=== PATIENT | male | born 1935 | race Caucasian/White ===

== ENCOUNTER 2018-04-07 08:51 | Outpatient (CLI) | payer MEDICARE, BC ==
--- NOTE | 2018-04-07 11:40 | CT ---
CT ABDOMEN AND PELVIS WITHOUT IV CONTRAST: DATE: 04/07/2018. PROVIDED CLINICAL HISTORY: Diverticulitis. FINDINGS: The biochemistry technologist reports administered 100 cc of IV Isovue 370 prior to the procedure. Contrast ma terial is not present intravascularly at the time of image acquisition. The technologist reports no evidence for infiltration of the IV. The visualized lung bases are free of significant opacity. The solid abdominal organs are suboptimally evaluated in the absence of IV contrast but demonstrate a n unremarkable unenhanced CT appearance. There is sigmoid diverticulosis with minimal equivocal fat stranding changes about a portion of the d istal sigmoid colon that may reflect mild uncomplicated diverticulitis. There is no evidence for bowel dilatation, additional inflammatory fat stranding, free fluid, or free air. The prostate gland is prominently enlarged. The osseous structures demonstrate no concerning lytic or blastic lesions. IMPRESSION: 1. Sigmoid diverticulosis with possible mild uncomplicated diverticulitis involving the distal sigmo id colon. 2. Other chronic findings as above. POS: HENRIETTA
== END 2018-04-07 08:52 | disposition home or self-care (01) ==
LOC: SCSCT 08:51
PROVIDERS: ATTEND Internal Medicine Gastroenterology
DX: K57.92 Diverticulitis of intestine, part unspecified, without perforation or abscess without bleeding (principal); K57.30 Diverticulosis of large intestine without perforation or abscess without bleeding
CPT/HCPCS: 74177; 82565

== ENCOUNTER 2020-04-15 08:29 | Observation (INO) | payer MEDICARE, BC ==
[2020-04-15 09:00] LABS: #Eosinphils 0.1 thou/uL (0.0-0.7); #Lymphocytes 0.6 thou/uL (1.20-3.40); #Monocytes 0.4 thou/uL (0.11-0.59); #Neutrophils 4.7 thou/uL (1.40-6.50); %Basophils 0.5 % (0.0-1.0); %Eosinophils 1.1 % (0.0-10.0); %Lymphocytes 10.5 % (21.0-51.0); %Monocytes 6.1 % (0.0-10.0); %Neutrophils 81.8 % (42.0-75.0); Hemoglobin 11.9 g/dL (14.0-18.0); Mean Corpuscular HGB CONC 34.1 g/dL (32.0-36.0); Mean Corpuscular Hemoglobin 34.6 pg (27.0-31.0); Mean Platelet Volume 7.9 fL (7.4-10.4); Platelet Count 137 thou/uL (130-400); RBC Distribution Width 11.5 % (11.5-14.5); Red Blood Cell (RBC) Count 3.44 mill/uL (4.70-6.10); White Blood Cell (WBC) Count 5.7 thou/uL (4.8-10.8)
--- NOTE | 2020-04-15 09:11 | RAD ---
CHEST 1 VIEW: Date: 04/15/2020 HISTORY: Nauseous, dizziness, weakness. COMPARISON: 04/01/2016. FINDINGS: Mild increased linear markings in the bases. No confluent pneumonia, overt edema, or pleural effusion . IMPRESSION: No significant acute intrathoracic disease. POS: RRE
--- NOTE | 2020-04-15 09:12 | CT ---
BRAIN CT WITHOUT IV CONTRAST: Date: 04/15/2020 HISTORY: Dizziness. Weakness. Nausea. FINDINGS: There is some atrophy and chronic white matter ischemic change. No focal mass or midline shift. No in tra or extra-axial hemorrhage. Mild ethmoid sinus mucosal congestion. The mastoids appear clear. IMPRESSION: No significant acute intrathoracic disease. POS: RRE
[2020-04-15 09:38] LABS: ALT (SGPT) 19 U/L (8-55); AST (SGOT) 31 U/L (5-34); Albumin 3.9 g/dL (3.4-4.8); Alkaline Phosphatase 46 U/L (40-110); Anion Gap 18 mmol/L (10-20); BUN (Urea Nitrogen) 26 mg/dL (8.4-25.7); Bilirubin, Total 1.3 mg/dL (0.2-1.2); Calc. Creatinine Clearance 0 mL/min (70-130); Calcium 8.7 mg/dL (7.8-10.44); Carbon Dioxide 19 mmol/L (23-31); Chloride 105 mmol/L (98-107); Globulin 3.2 g/dL (2.4-3.5); Glucose 120 mg/dL (83-110); Potassium 4.4 mmol/L (3.5-5.1); Protein, Total 7.1 g/dL (5.8-8.1); Sodium 138 mmol/L (136-145)
[2020-04-15 10:43] LABS: Bilirubin Negative (Negative); Blood, Urine Negative (Negative); Clarity Clear (Clear); Glucose, Urine (Dipstick) Normal (Negative); Ketone, Urine Negative (Negative); Leukocyte Negative Leu/uL (Negative); Nitrite Negative (Negative); Protein, Urine (Dipstick) 20 mg/dL (Neg-Trace); Specific Gravity, Urine 1.019 (1.002-1.036); Urobilinogen Normal mg/dL (Less than 2)
[2020-04-15] MEDS ORDERED: Meclizine HCl 25 MG TAB ONE (11:35)
--- NOTE | 2020-04-15 11:57 | PDOC.HHP ---
Hospitalist HPI - History of Present Illness Dizziness History of Present Illness: Mr. Cherry is an 84-year-old male with past medical history of hypertension, hyperlipidemia, BPH, diverticulitis who presents emergency room for acute onset of dizziness. Patient reports that he awoke this morning and approximately 10 minutes after waking up he became extremely dizzy and felt as though the room was spinning around him. Patient states his dizziness was so severe he had to crawl on the floor on his hands and knees. Patient also felt extremely nauseous. He denies any history of vertigo or any similar events. Episode lasted approximately 2 hours and resolves, however while in emergency room patient had a second acute episode of dizziness and on my exam continues to report that the room is spinning. He denies any numbness weakness or paresthesias. Denies any visual changes. Denies any recent ear infections or upper respiratory infections. No recent dental work. Denies chest pain, shortness of breath, abdominal pain. Emergency room initial vital signs 126/69, 67, 16, 97.9, 95% on room air. Head CT with no acute findings. Chest x-ray with no acute findings. Initial troponin 0 0.010. H/H 11.9/34.9. WBC 5.7. BUN/CR 26/1.08. Sodium 138, potassium 4.4, glucose 120. Patient received meclizine 25 mg as well as Zofran in the emergency room. Hospitalist ROS - Review of Systems Constitutional: denies: fever, chills, sweats, weakness, malaise, other Eyes: denies: pain, vision change, conjunctivae inflammation, eyelid inflammation, redness, other ENT: denies: ear pain, ear discharge, nose pain, nose discharge, nose congestion, mouth pain, mouth swelling, throat pain, throat swelling, other Respiratory: denies: cough, dry, shortness of breath, hemoptysis, SOB with excertion, pleuritic pain, sputum, wheezing, other Cardiovascular: denies: chest pain, palpitations, orthopnea, paroxysmal noc. dyspnea, edema, light headedness, other Gastrointestinal: reports: nausea. denies: vomiting, abdominal pain, diarrhea, constipation, melena, hematochezia, other Genitourinary: denies: dysuria, frequency, incontinence, hematuria, retention, other Musculoskeletal: denies: neck pain, shoulder pain, arm pain, back pain, hand pain, leg pain, foot pain, other Skin: denies: rash, lesions, carmine, bruising, other Other: Dizziness as though the room is spinning - Medication Medications: New medications include Lipitor Flomax Aspirin Diovan Allergies to adhesive tape, phenylephrine, dicyclomine, pseudoephedrine, brompheniramine Hospitalist History - Past Medical History Other Medical History: Past medical history includes Hypertension Hyperlipidemia BPH Diverticulitis - Past Surgical History Other Surgical History: Past surgical history includes Hernia repair Back surgery - Family History Other Family History: Endorses family history of strokes in both his parents - Social History Smoking Status: Never smoker Alcohol: reports: None Drugs: reports: none Living Situation: With Family Activity level: independent ambulation - Exam General Appearance: NAD, awake alert Eye: PERRL, anicteric sclera Eye - other findings: Horizontal nystagmus ENT: normocephalic atraumatic, no oropharyngeal lesions, moist mucosa Neck: supple, symmetric, no JVD, no thyromegaly, no lymphadenopathy, no carotid bruit Heart: RRR, no murmur, no gallops, no rubs, normal peripheral pulses Respiratory: CTAB, no wheezes, no rales, no ronchi, normal chest expansion, no tachypnea, normal percussion Gastrointestinal: soft, non-tender, non-distended, normal bowel sounds, no palpable masses, no hepatomegaly, no splenomegaly, no bruit Extremities: no cyanosis, no clubbing, no edema Skin: normal turgor, no lesions, no rashes Neurological: cranial nerve grossly intact, normal sensation to touch, no weakness, no focal deficits, no new deficit Neurological - other findings: Horizontal nystagmus, constricted pupils, no pronator drift, FTN intact Musculoskeletal: normal tone, normal strength, no muscle wasting Psychiatric: normal affect, normal behavior, A&O x 3 Hospitalist Results - Labs Result Diagrams: 04/15/20 08:44 04/15/20 08:44 Lab results: WBC 5.7 thou/uL (4.8-10.8) 04/15/20 08:44 Hgb 11.9 g/dL (14.0-18.0) L 04/15/20 08:44 Hct 34.9 % (42.0-52.0) L 04/15/20 08:44 MCV 101.0 fL (78.0-98.0) H 04/15/20 08:44 Plt Count 137 thou/uL (130-400) 04/15/20 08:44 Neutrophils % 81.8 % (42.0-75.0) H 04/15/20 08:44 Sodium 138 mmol/L (136-145) 04/15/20 08:44 Potassium 4.4 mmol/L (3.5-5.1) 04/15/20 08:44 Chloride 105 mmol/L (98-107) 04/15/20 08:44 Carbon Dioxide 19 mmol/L (23-31) L 04/15/20 08:44 BUN 26 mg/dL (8.4-25.7) H 04/15/20 08:44 Creatinine 1.08 mg/dL (0.7-1.3) 04/15/20 08:44 Glucose 120 mg/dL (83-110) H 04/15/20 08:44 Calcium 8.7 mg/dL (7.8-10.44) 04/15/20 08:44 Total Bilirubin 1.3 mg/dL (0.2-1.2) H 04/15/20 08:44 AST 31 U/L (5-34) 04/15/20 08:44 ALT 19 U/L (8-55) 04/15/20 08:44 Alkaline Phosphatase 46 U/L (40-110) 04/15/20 08:44 Troponin I Less than 0.010 ng/mL (< 0.028) 04/15/20 08:44 Serum Total Protein 7.1 g/dL (5.8-8.1) 04/15/20 08:44 Albumin 3.9 g/dL (3.4-4.8) 04/15/20 08:44 Urine Ketones Negative mg/dL (Negative) 04/15/20 10:16 Urine Blood Negative (Negative) 04/15/20 10:16 Urine Nitrite Negative (Negative) 04/15/20 10:16 Ur Leukocyte Esterase Negative Luisa/uL (Negative) 04/15/20 10:16 Hospitalist H&P A/P - Plan Plan: 84-year-old male with possible history hypertension, hyperlipidemia, BPH, diverticulitis presents with acute onset of dizziness concerning for vertigo versus posterior CVA. Dizziness Patient with acute onset of dizziness lasting hours. Reports as though the room is spinning around him. No focal deficits on exam. Neurologically intact with horizontal nystagmus. Patient received meclizine and Zofran in emergency room. Patient had initial improvement in his symptoms, however had second dizziness episode which has continued for the past few hours. Head CT with no acute findings. H/H 11.9/34.9. WBC 5.7. Likely vertigo versus posterior CVA. Patient is a non-smoker but does have hypertension and hyperlipidemia as well as family history of strokes in both his parents. Will admit for CVA rule out. Plan Aspirin, statin Meclizine, Zofran as needed Brain MRI Every 4 hour neurochecks Hypertension History of hypertension on home Diovan. Hold in setting of permissive htn for r/o CVA Hyperlipidemia Continue home atorvastatin BPH Continue home Flomax DVT prophylaxisSCDs Full codeMDM is patient's Case discussed with attending physician Dr. Hodges.
[2020-04-15] MEDS ORDERED: Acetaminophen 325 MG TAB PO PRN (12:06)
[2020-04-15] MEDS ORDERED: Ondansetron PF 4 MG/2 ML Vial IVP PRN (12:06)
[2020-04-15] MEDS ORDERED: Acetaminophen 650 MG Suppository PR PRN (12:06)
[2020-04-15] MEDS ORDERED: Ondansetron ODT 4 MG TAB PO PRN (12:06)
[2020-04-15] MEDS ORDERED: Meclizine HCl 25 MG TAB PO PRN (12:09)
[2020-04-15] MEDS ORDERED: Aspirin 325 MG TAB PO SCH (12:15)
[2020-04-15 13:07] LABS: Hemoglobin A1c 5.3 % (4.0-6.0)
[2020-04-15] MEDS ORDERED: Aspirin Chewable 81 MG TAB ONE (16:31)
[2020-04-15 18:07] VITALS: BMI 26.4
[2020-04-15 18:30] LABS: Amphetamine Not Detected (NotDetected); Barbiturates Screen Not Detected (NotDetected); Benzodiazepine Screen Not Detected (NotDetected); Cocaine Metabolite Screen Not Detected (NotDetected); Medtox Control Line Valid? VALID (VALID); Medtox Reader # READER 4; Methadone Not Detected (NotDetected); Methamphetamine Not Detected (NotDetected); Opiate Screen Not Detected (NotDetected); Oxycodone Screen Not Detected (NotDetected); Phencyclidine (PCP) Not Detected (NotDetected); THC/Cannabinoid Screen Not Detected (NotDetected); Tricyclic Screen Not Detected (NotDetected)
[2020-04-15] MEDS ORDERED: Atorvastatin Calcium 10 MG TAB PO SCH (21:00)
[2020-04-16 07:05] LABS: Hemoglobin 12.2 g/dL (14.0-18.0); Mean Corpuscular HGB CONC 33.6 g/dL (32.0-36.0); Mean Corpuscular Hemoglobin 34.5 pg (27.0-31.0); Mean Platelet Volume 7.6 fL (7.4-10.4); Platelet Count 134 thou/uL (130-400); RBC Distribution Width 11.7 % (11.5-14.5); Red Blood Cell (RBC) Count 3.53 mill/uL (4.70-6.10); White Blood Cell (WBC) Count 4.4 thou/uL (4.8-10.8)
[2020-04-16 07:17] LABS: Anion Gap 11 mmol/L (10-20); BUN (Urea Nitrogen) 23 mg/dL (8.4-25.7); Calc. Creatinine Clearance 52 mL/min (70-130); Calcium 8.6 mg/dL (7.8-10.44); Carbon Dioxide 27 mmol/L (23-31); Chloride 105 mmol/L (98-107); Glucose 91 mg/dL (83-110); Potassium 4.1 mmol/L (3.5-5.1); Sodium 139 mmol/L (136-145)
[2020-04-16 08:50] LABS: Band 9 % (5-11); Eosinophils 1 % (0-10); Lymphocytes 21 % (21-51); MDiff Complete? YES; Monocytes 13 % (0-10); Neutrophil 56 % (42-75); Platelet Morphology Comment Appears Adequate; Polychromasia SLIGHT = 2-3 cells (100X) (0-2/hpf)
[2020-04-16] MEDS ORDERED: Enoxaparin Sodium 40 MG/0.4 ML SYRINGE SC SCH (09:00)
[2020-04-16 12:50] LABS: SARS-CoV-2 PCR by NAA Not Detected (NotDetected)
--- NOTE | 2020-04-16 15:51 | MRI ---
Exam: Brain MRI without contrast HISTORY: Suspected CVA COMPARISON: None FINDINGS: Calvarial marrow signal intensity: Appropriate T1 signal Gradient echo sequence: No hemorrhage Brain parenchyma: No mass, mass effect or midline shift. Brain volume, age-appropriate. Cortical ortiz-white matter differentiation: Preserved Restricted diffusion: Central arterial flow voids are maintained. Absent restricted diffusion White matter signal intensities:Minimal scattered T2, FLAIR white matter hyperintensities due to synchronous motor assembler garrett small vessel ischemic changes Sinuses: Adequate aeration of the paranasal sinuses and mastoid air cells. IMPRESSION: Absent restricted diffusion. No acute infarct.
[2020-04-16 16:32] VITALS: BP 174/75; TEMP 97.6
--- NOTE | 2020-04-16 16:58 | PDOC.DS.DS ---
Provider Date of Admission: 04/15/20 12:06 Date of Discharge: 04/16/20 Admitting Provider: Niki Hodges MD Primary Care Physician: Tone Antunez MD Course Hospital Course: HISTORY OF PRESENT ILLNESS ON ADMISSION: Mr. Cherry is an 84-year-old male with past medical history of hypertension, hyperlipidemia, BPH, diverticulitis who presents emergency room for acute onset of dizziness. Patient reports that he awoke this morning and approximately 10 minutes after waking up he became extremely dizzy and felt as though the room was spinning around him. Patient states his dizziness was so severe he had to crawl on the floor on his hands and knees. Patient also felt extremely nauseous. He denies any history of vertigo or any similar events. Episode lasted approximately 2 hours and resolves, however while in emergency room patient had a second acute episode of dizziness and on my exam continues to report that the room is spinning. He denies any numbness weakness or paresthesias. Denies any visual changes. Denies any recent ear infections or upper respiratory infections. No recent dental work. Denies chest pain, shortness of breath, abdominal pain. Emergency room initial vital signs 126/69, 67, 16, 97.9, 95% on room air. Head CT with no acute findings. Chest x-ray with no acute findings. Initial troponin 0 0.010. H/H 11.9/34.9. WBC 5.7. BUN/CR 26/1.08. Sodium 138, potassium 4.4, glucose 120. Patient received meclizine 25 mg as well as Zofran in the emergency room. BRIEF HOSPITAL COURSE Mr. Cherry is an 84-year-old male with past medical history of hypertension, hyperlipidemia, BPH, diverticulitis who presented to the emergency room for acute onset of dizziness. Patient had an initial dizzy spell for approximately for a few hours and then completely resolved. No focal deficits. Neuro exam normal except for horizontal nystagmus at end gaze. Patient had a second episode of dizziness in the emergency room prompting him to be admitted for a TIA rule out. Patient denied any numbness weakness or paresthesias. He had no visual changes. His symptoms were consistent with benign peripheral paroxysmal vertigo. Patient had no lab abnormalities and initial head CT had no acute findings but did show mild mucus congestion in the ethmoid sinus. Patient's symptoms improved with meclizine and Zofran. He was admitted overnight for observation and the following morning he had no symptoms felt as though he was at his baseline and had a completely intact neurological exam. An MRI was ordered to rule out a posterior stroke which was normal. Patient was felt to be medically safe for discharge home and was given a prescription for meclizine. Patient will need to follow-up with his primary care provider in 1 week and has been instructed to return to the emergency room should he develop any additional dizziness or any new neurologic or other concerning symptoms. Case was discussed with attending physician Dr. Iniguez, who agrees that patient is medically safe for discharge home. Pertinent Studies: BRAIN CT WITHOUT IV CONTRAST: Date: 04/15/2020 HISTORY: Dizziness. Weakness. Nausea. FINDINGS: There is some atrophy and chronic white matter ischemic change. No focal mass or midline shift. No intra or extra-axial hemorrhage. Mild ethmoid sinus mucosal congestion. The mastoids appear clear. IMPRESSION: No significant acute intrathoracic disease. Dictated By: MICHELE PATTON Signed By: MICHELE PATTON Electronically signed: 04/15/2020 9:21:14 AM Exam: Brain MRI without contrast HISTORY: Suspected CVA COMPARISON: None FINDINGS: Calvarial marrow signal intensity: Appropriate T1 signal Gradient echo sequence: No hemorrhage Brain parenchyma: No mass, mass effect or midline shift. Brain volume, age-appropriate. Cortical ortiz-white matter differentiation: Pres erved Restricted diffusion: Central arterial flow voids are maintained. Absent restricted diffusion White matter signal intensities:Minimal scattered T2, FLAIR white matter hyperintensities due to chronic small vessel ischemic changes Sinuses: Adequate aeration of the paranasal sinuses and mastoid air cells. IMPRESSION: Absent restricted diffusion. No acute infarct. Resuscitation Status: 04/15/20 12:06 Resuscitation Status Routine Co-Sign Provider: Resuscitation Status: FULL: Full Resuscitation Lab Results: 04/16/20 06:32 04/16/20 06:32 Abnormal Lab Results - Last 48 hrs 04/15/20 08:44: Carbon Dioxide 19 L, BUN 26 H, Total Bilirubin 1.3 H 04/15/20 08:44: RBC 3.44 L, Hgb 11.9 L, Hct 34.9 L, MCV 101.0 H, MCH 34.6 H, Neutrophils % 81.8 H, Lymphocytes % 10.5 L, Lymphocytes # 0.6 L 04/16/20 06:32: WBC 4.4 L, RBC 3.53 L, Hgb 12.2 L, Hct 36.3 L, MCV 103.0 H, MCH 34.5 H, Monocytes % (Manual) 13 H Vitals: Vital Signs (12 hours) Temp Pulse Resp BP Pulse Ox 04/16/20 16:31 97.6 F 64 20 174/75 H 98 04/16/20 12:00 97.5 F L 71 18 146/72 H 96 04/16/20 07:00 98.2 F 63 20 144/65 H 95 Weight Weight 168 lb 6.4 oz Physical Exam: The patient was seen and examined on the day of discharge. General Appearance: NAD, awake alert Eye: PERRL, anicteric sclera Eye - other findings: EOM intact, no nystagmus ENT: normocephalic atraumatic, no oropharyngeal lesions, moist mucosa Neck: supple, symmetric, no JVD, no thyromegaly, no lymphadenopathy, no carotid bruit Respiratory: CTAB, no wheezes, no rales, no ronchi, normal chest expansion, no tachypnea, normal percussion Cardiovascular: RRR, no murmur, no gallops, no rubs, normal peripheral pulses Gastrointestinal: soft, non-tender, non-distended, normal bowel sounds, no palpable masses, no hepatomegaly, no splenomegaly, no bruit, no guarding, no rigidity Extremities: no cyanosis, no clubbing, no edema Skin: normal turgor, no lesions, no rashes Neurological: cranial nerve grossly intact, normal sensation to touch, no weakness, no focal deficits, no new deficit Neurological - other findings: No pronator drift, normal gait Musculoskeletal: normal tone, normal strength, no muscle wasting PSYCH: normal affect, normal behavior, A&O x 3, oriented to person, oriented to place, oriented to time Problem Assessment: Benign Position Paroxysmal Vertigo 84 M hx HTN presented with acute onset dizziness as though the room was spinning around him. Non-focal exam. CN intact. Horizontal nystagmus on exam. Head CT with no acute findings, but did show ethmoid mucous congestion. Tympanic membranes wnl. No hearing loss. Vertigo likely secondary to BPPV vs a mild vestibular labrythitis. Patient with no infectious symptoms. Telemetry monitoring with no abnormal rhythms. Patient continued on daily aspirin. MRI brain ordered to rule out posterior circulation stroke which was negative. Will need to follow up with PCP as an outpatient. Instructed to return to ER if symptoms return, worsen. Plan -May use meclizine or OTC dramamine -Follow up with PCP -Return to ER for new/worsening/concerning symptoms HTN Continue home medication Hyperlipidemia Continue home medication BPH Continue home medication Case discussed with attending physician, Dr. Iniguez who reviewed patient chart and agrees that patient is medically safe for discharge home with return precautions. Plan Prescriptions: Meclizine HCl [Antivert] 25 mg PO Q8H PRN #20 tab PRN Reason: Dizziness Home Medications: Medication Instructions Recorded Confirmed Type Aspirin [Adult Low Dose Aspirin EC] 81 mg PO HS 04/05/14 04/15/20 History Atorvastatin Calcium 10 mg PO ASDIR 04/05/14 04/15/20 History Lutein 40 mg PO DAILY 04/05/14 04/15/20 History Niacinamide 250 mg PO DAILY 04/05/14 04/15/20 History Potassium/Magnesium 250 mg PO DAILY 04/05/14 04/15/20 History Tamsulosin HCl [Flomax] 0.4 mg PO BID 04/05/14 04/15/20 History Valsartan/Hydrochlorothiazide 1 tablet PO ASDIR 04/05/14 04/15/20 History [Valsartan-Hctz 320-12.5 mg Tab] Meclizine HCl [Antivert] 25 mg PO Q8H PRN #20 tab 04/16/20 Rx Allergies: adhesive Allergy (Mild, Verified 06/18/19 03:55) Rash rash - pls. use paper tape brompheniramine [From Bromfed] Allergy (Verified 06/18/19 03:55) dicyclomine [From Bentyl] Allergy (Verified 06/18/19 03:55) phenylephrine [From Bromfed] Allergy (Verified 06/18/19 03:55) pseudoephedrine [From Bromfed] Allergy (Verified 06/18/19 03:55) tussi organidin Allergy (Uncoded 06/18/19 03:55) Discharge Instructions:: You were admitted to the hospital for dizziness. You underwent a head CT scan which was normal. You also underwent a head MRI which was also normal. Your symptoms and dizziness was felt to be caused by vertigo, a common inner-ear problem. If you develop any new symptoms however it is important that you go to your nearest emergency room. You will also need to follow up with your primary care provider in one week. Activity:: Activity as Tolerated Nourishment:: Heart Healthy Diet Referrals: Tone Antunez MD [Primary Care Provider] - (Call for appointment if not already made. ) Disposition: HOME Quality CORE MEASURES:: Stroke/TIA Did you prescribe antithrombotic therapy?: No Specify reason for no DC antithrombotic therapy: Treatment not indicated Did you prescribe anticoagulant for A Fib/Flutter?: No Specify reason for no DC anticoagulant: Treatment not indicated Did you prescribe a statin medication?: Yes
--- NOTE | 2020-05-03 21:50 | EKG ---
Test Reason : DIZZY Blood Pressure : / mmHG Vent. Rate : 061 BPM Atrial Rate : 061 BPM P-R Int : 178 ms QRS Dur : 090 ms QT Int : 430 ms P-R-T Axes : 039 010 058 degrees QTc Int : 432 ms Normal sinus rhythm Normal ECG Confirmed by CESAR WHITTEN DO ([id number]), proposal editor PARESH ARZATE ([id number]) on 05/03/2020 9:50:14 PM Referred By: Confirmed By:CESAR WHITTEN DO
== END 2020-04-16 17:45 | disposition home or self-care (01) ==
LOC: ERS 08:29 → ERHOLD 12:06 → 3SE 17:49
PROVIDERS: ADMIT Internal Medicine; ATTEND Internal Medicine
DX: H81.10 Benign paroxysmal vertigo, unspecified ear (principal); I10 Essential (primary) hypertension; E78.5 Hyperlipidemia, unspecified; N40.0 Benign prostatic hyperplasia without lower urinary tract symptoms; Z79.82 Long term (current) use of aspirin; Z79.899 Other long term (current) drug therapy; Z88.8 Allergy status to other drugs, medicaments and biological substances; Z91.048 Other nonmedicinal substance allergy status; Z20.822 Contact with and (suspected) exposure to COVID-19
CPT/HCPCS: 70450; 70551; 71045; 80048; 80306; 81003; 83036; 83735; 84484; 85025; 93005; 99285; U0003; U0005; 36415; 80053; 84443; 87635; 96372; G0378; J1650

== ENCOUNTER 2020-08-31 22:15 | Inpatient (IN) | payer MEDICARE, BC ==
[2020-08-31] MEDS ORDERED: Ondansetron PF 4 MG/2 ML Vial ONE (22:59)
[2020-08-31 23:10] LABS: Bilirubin Negative (Negative); Blood, Urine Negative (Negative); Glucose, Urine (Dipstick) Negative (Negative); Ketone, Urine Negative (Negative); Leukocyte Negative (Negative); Nitrite Negative (Negative); Protein, Urine (Dipstick) Negative (Neg-Trace); Specific Gravity, Urine 1.015 (1.005-1.030); Urobilinogen 0.2 mg/dL (Less than 2); pH, Urine 8.5 (5.0-9.0)
[2020-08-31 23:15] LABS: Clarity Clear (Clear)
[2020-08-31 23:34] LABS: #Lymphocytes 0.7 thou/uL (1.20-3.40); #Monocytes 0.6 thou/uL (0.11-0.59); #Neutrophils 6.2 thou/uL (1.40-6.50); %Basophils 0.2 % (0.0-1.0); %Eosinophils 0.3 % (0.0-10.0); %Lymphocytes 9.6 % (21.0-51.0); %Monocytes 7.3 % (0.0-10.0); %Neutrophils 82.7 % (42.0-75.0); Mean Corpuscular HGB CONC 34.6 g/dL (32.0-36.0); Mean Corpuscular Hemoglobin 35.1 pg (27.0-31.0); Mean Platelet Volume 7.8 fL (7.4-10.4); Platelet Count 144 thou/uL (130-400); RBC Distribution Width 11.5 % (11.5-14.5); Red Blood Cell (RBC) Count 3.12 mill/uL (4.70-6.10); White Blood Cell (WBC) Count 7.5 thou/uL (4.8-10.8)
[2020-08-31 23:53] LABS: Acetaminophen Less than 6.0 mcg/mL (10.0-30.0); Alcohol Less than 10 mg/dL (Less than 10); Salicylate Less than 8.0 mg/dL (15.0-30.0)
[2020-08-31 23:54] LABS: ALT (SGPT) 14 U/L (8-55); AST (SGOT) 21 U/L (5-34); Albumin 3.8 g/dL (3.4-4.8); Alkaline Phosphatase 51 U/L (40-110); Anion Gap 14 mmol/L (10-20); BUN (Urea Nitrogen) 22 mg/dL (8.4-25.7); Bilirubin, Total 1.2 mg/dL (0.2-1.2); Calc. Creatinine Clearance 0 mL/min (70-130); Calcium 8.6 mg/dL (7.8-10.44); Carbon Dioxide 23 mmol/L (23-31); Chloride 104 mmol/L (98-107); Globulin 2.7 g/dL (2.4-3.5); Glucose 121 mg/dL (83-110); Potassium 4.3 mmol/L (3.5-5.1); Protein, Total 6.5 g/dL (5.8-8.1); Sodium 137 mmol/L (136-145)
[2020-09-01] MEDS ORDERED: Acetaminophen 325 MG TAB PO PRN (00:50)
[2020-09-01] MEDS ORDERED: Senokot S 8.6-50 MG TAB PO PRN (00:50)
[2020-09-01] MEDS ORDERED: Diazepam 10 MG/2 ML SYRINGE ONE (01:08)
[2020-09-01] MEDS ORDERED: Aspirin Chewable 81 MG TAB ONE (02:17)
[2020-09-01 02:58] VITALS: BMI 27.5
[2020-09-01 04:01] LABS: #Lymphocytes 0.9 thou/uL (1.20-3.40); #Monocytes 0.5 thou/uL (0.11-0.59); #Neutrophils 5.3 thou/uL (1.40-6.50); %Basophils 0.1 % (0.0-1.0); %Eosinophils 0.2 % (0.0-10.0); %Lymphocytes 13.7 % (21.0-51.0); %Monocytes 7.6 % (0.0-10.0); %Neutrophils 78.4 % (42.0-75.0); Hemoglobin 11.3 g/dL (14.0-18.0); Mean Corpuscular HGB CONC 33.3 g/dL (32.0-36.0); Mean Corpuscular Hemoglobin 34.1 pg (27.0-31.0); Mean Platelet Volume 7.4 fL (7.4-10.4); Platelet Count 137 thou/uL (130-400); RBC Distribution Width 11.5 % (11.5-14.5); Red Blood Cell (RBC) Count 3.31 mill/uL (4.70-6.10); White Blood Cell (WBC) Count 6.7 thou/uL (4.8-10.8)
[2020-09-01 04:20] LABS: Anion Gap 13 mmol/L (10-20); BUN (Urea Nitrogen) 20 mg/dL (8.4-25.7); Calc. Creatinine Clearance 60 mL/min (70-130); Carbon Dioxide 25 mmol/L (23-31); Chloride 103 mmol/L (98-107); Glucose 114 mg/dL (83-110); Potassium 4.2 mmol/L (3.5-5.1); Sodium 137 mmol/L (136-145)
[2020-09-01 04:23] LABS: Troponin I Less than 0.010 ng/mL (< 0.028)
[2020-09-01] MEDS: Meclizine HCl 25 MG TAB PO SCH ×3 (05:36→22:47)
[2020-09-01 07:56] LABS: Troponin I Less than 0.010 ng/mL (< 0.028)
[2020-09-01] MEDS: Famotidine 20 MG TAB PO SCH ×2 (08:22→20:17)
[2020-09-01] MEDS: Enoxaparin Sodium 40 MG/0.4 ML SYRINGE SC SCH (08:23)
[2020-09-01] MEDS: Aspirin 81 mg Enteric Coated Tablet PO SCH (08:23)
[2020-09-01] MEDS: Sodium Chloride 0.9% 1,000 ML IV SCH (15:39)
[2020-09-01] MEDS ORDERED: Hydrochlorothiazide 25 MG TAB PO SCH ×2 (15:49→16:00)
[2020-09-01] MEDS ORDERED: Valsartan 80 MG TAB PO SCH ×2 (15:49→16:00)
[2020-09-01] MEDS: Atorvastatin Calcium 10 MG TAB PO SCH ×2 (20:17→20:18)
[2020-09-02] MEDS: Sodium Chloride 0.9% 1,000 ML IV SCH ×2 (04:15→16:56)
[2020-09-02] MEDS: Meclizine HCl 25 MG TAB PO SCH ×3 (06:08→21:19)
[2020-09-02] MEDS ORDERED: Valsartan 80 MG TAB PO SCH (09:00)
[2020-09-02] MEDS ORDERED: Hydrochlorothiazide 25 MG TAB PO SCH (09:00)
[2020-09-02] MEDS: Hydrochlorothiazide 25 MG TAB PO SCH (09:04)
[2020-09-02] MEDS: Valsartan 80 MG TAB PO SCH (09:05)
[2020-09-02] MEDS: Atorvastatin Calcium 10 MG TAB PO SCH (09:05)
[2020-09-02] MEDS: Aspirin 81 mg Enteric Coated Tablet PO SCH (09:05)
[2020-09-02] MEDS: Famotidine 20 MG TAB PO SCH ×2 (09:06→21:19)
[2020-09-02] MEDS: Enoxaparin Sodium 40 MG/0.4 ML SYRINGE SC SCH (09:08)
[2020-09-02] MEDS: hydrALAZINE 20 MG/ML VIAL SLOW IVP PRN ×2 (12:24→21:26)
[2020-09-02] MEDS ORDERED: cloNIDine 0.1 MG TAB PO PRN (15:09)
[2020-09-03] MEDS: hydrALAZINE 20 MG/ML VIAL SLOW IVP PRN (03:53)
[2020-09-03] MEDS ORDERED: Sodium Chloride 0.65% Nasal 44 ML BOT EA NARE PRN (04:00)
[2020-09-03] MEDS: Meclizine HCl 25 MG TAB PO SCH ×2 (05:40→14:54)
[2020-09-03] MEDS: Sodium Chloride 0.9% 1,000 ML IV SCH (05:41)
[2020-09-03] MEDS: Aspirin 81 mg Enteric Coated Tablet PO SCH (09:14)
[2020-09-03] MEDS: Valsartan 80 MG TAB PO SCH (09:14)
[2020-09-03] MEDS: Hydrochlorothiazide 25 MG TAB PO SCH (09:15)
[2020-09-03] MEDS: Famotidine 20 MG TAB PO SCH (09:15)
[2020-09-03] MEDS: Atorvastatin Calcium 10 MG TAB PO SCH (09:15)
[2020-09-03] MEDS: Enoxaparin Sodium 40 MG/0.4 ML SYRINGE SC SCH (09:16)
[2020-09-03 11:51] VITALS: TEMP 97.8
[2020-09-03 15:42] VITALS: BP 153/75
[2020-09-03] MEDS ORDERED: Aspirin 81 mg Enteric Coated Tablet PO SCH (21:00)
[2020-09-03] MEDS ORDERED: Tamsulosin HCl 0.4 MG CAP PO SCH (21:00)
[2020-09-04] MEDS ORDERED: MAGNESIUM PO SCH (09:00)
[2020-09-04] MEDS ORDERED: POTASSIUM PO SCH (09:00)
[2020-09-04] MEDS ORDERED: Vit A,C & E/Lutein/Minerals Tablet PO SCH (09:00)
[2020-09-04] MEDS ORDERED: Niacin 500 MG TAB PO SCH (09:00)
[2020-09-04] MEDS ORDERED: Atorvastatin Calcium 10 MG TAB PO SCH (09:00)
== END 2020-09-03 17:07 | disposition home health service (06) | DRG 149 ==
LOC: ERS 22:15 → 2SE 09-01 00:55 → OBSVTOIN 09-02 16:40
PROVIDERS: ADMIT Student in an Organized Health Care Education/Training Program; ATTEND Family Medicine
DX: H81.10 Benign paroxysmal vertigo, unspecified ear (principal); Z20.822 Contact with and (suspected) exposure to COVID-19; I10 Essential (primary) hypertension; E78.5 Hyperlipidemia, unspecified; E78.00 Pure hypercholesterolemia, unspecified; N40.0 Benign prostatic hyperplasia without lower urinary tract symptoms; Z88.8 Allergy status to other drugs, medicaments and biological substances; Z79.899 Other long term (current) drug therapy; Z79.82 Long term (current) use of aspirin
CPT/HCPCS: 36415; 70450; 70551; 71045; 80048; 80053; 80061; 80307; 81003; 84484; 85025; 93005; 93306; 93880; 96372; 96374; 96375; G0378; J0360; J1650; J2405; J3360

== ENCOUNTER 2021-03-19 12:48 | Outpatient (CLI) | payer MEDICARE, BC | END 2021-03-19 12:49 | disposition home or self-care (01) | LOC: MRI 12:48 | PROVIDERS: ATTEND Specialist | DX: R42 Dizziness and giddiness (principal); I67.82 Cerebral ischemia | CPT/HCPCS: 70553 ==